=== PATIENT | female | born 1960 | race Caucasian/White ===

== ENCOUNTER 2018-02-11 20:51 | Emergency (ER) | payer OTHER, SELFPAY ==
[2018-02-11 20:52] VITALS: BP 164/97; PULSE 90; RESP 15; TEMP 36.8; O2SAT 98; BMI 33.0
--- NOTE | 2018-02-11 21:04 | CT_ITS ---
STUDY: CT CHEST WITHOUT CONTRAST REASON FOR EXAM: Female, 57 years old. Fell and injured left side RADIATION DOSAGE (If Supplied By Facility): CTDIvol = ( 14.14 ) mGy, DLP = ( 519.27 ) mGycm TECHNIQUE: Transaxial imaging was performed without the administration of intravenous contrast material. Individualized dose optimization techniques were used for this CT. COMPARISON: None. FINDINGS: The lungs are normal. There is no demonstrated pleural abnormality. Normal heart and pericardium. Normal mediastinum. Normal hilar regions. Normal unenhanced pulmonary arteries. Normal aorta arch and descending thoracic aorta. Normal osseous structures. There is no demonstrated abnormality of the visualized upper abdomen. CT/Chest without Contrast IMPRESSION: Normal unenhanced CT Chest examination. Electronically Signed: Rubén Dixon MD at 22:26 EDT , Service support ,
[2018-02-11] MEDS: Ketorolac 30 MG/ML Syringe IM (21:30)
--- NOTE | 2018-02-11 22:41 | ED.VISSUMM ---
- ER Visit Summary Date of Service: 02/11/18 Chief Complaint: [Fall with injury to right chest] History of Present Illness: The patient is a 57 F [presents the emergency department after sustaining a fall approximately 5:30 PM today. Patient states that she tripped and fell onto the blacktop with her right chest. Patient denies striking her head or loss of consciousness. Patient complains of pain with breathing. She denies shortness of breath. He denies any neck pain or abdominal pain.] Physical Examination: [HEENT-PERRLA, EOMI. Cranial nerves II through XII grossly intact. TMs clear. Mucous membranes moist. No adenopathy. Cardiovascular-regular rate and rhythm without murmur or ectopy Lungs-clear to auscultation, chest wall stable without crepitus or subcu emphysema. Patient does have tenderness palpation over the right chest wall in the mid axillary line and posteriorly. No crepitus noted. Abdomen-normoactive bowel sounds, soft, nontender, no rebound or rigidity, no peritoneal signs. Extremities-intact ?4, normal range of motion, normal pulses, atraumatic] Test Results: [CT scan of the chest without contrast obtained was normal.] Emergency Department Course and Treatment: [Patient was medicated with Toradol if she refused any other medications.] Treatment Plan: [Patient did not want any pain meds for home. Patient advised to follow-up with primary care physician in 3-5 days.] Disposition: [Discharged home in stable condition] Impression: [Mechanical fall Chest wall contusion] This note was generated with [employer] dictation software. It may contain incorrect words, spelling, and punctuation that were not noted in review of the chart prior to signing ED Disposition - Plan for ED Patient: Chief Complaint: Chest Other Referrals: Care Physician,No Primary [Primary Care Provider] -
--- NOTE | 2018-02-11 22:43 | ED.DEP ---
ED Disposition - Plan for ED Patient: Chief Complaint: Chest Other Instructions: ED Contusion Chest Wall, ED Mechanical Fall Referrals: Care Physician,No Primary [Primary Care Provider] - Franko To MD [STAFF PHYSICIAN] - 5-7 Days
[2018-02-11 23:01] VITALS: BP 158/81; PULSE 74; RESP 16; O2SAT 98
== END 2018-02-11 23:02 | disposition home or self-care (01) ==
LOC: ED 21:36
PROVIDERS: Emergency Provider Emergency Medicine
DX: S20.211A Contusion of right front wall of thorax, initial encounter (principal); W01.0XXA Fall on same level from slipping, tripping and stumbling without subsequent striking against object, initial encounter; Y93.9 Activity, unspecified; Y92.9 Unspecified place or not applicable
CPT/HCPCS: 71250; 96372; 99282

== ENCOUNTER → 2019-11-12 06:39 | Outpatient (CLI) | payer OTHER, SELFPAY ==
--- NOTE | 2019-11-12 06:45 | MRI_ITS ---
STUDY: MRI RIGHT SHOULDER REASON FOR EXAM: Right shoulder/arm pain, limited range of motion, injury one month ago. TECHNIQUE: Standardized fat and water weighted pulse sequences were obtained in all 3 orthogonal planes. COMPARISON: None. FINDINGS: There is mild supraspinatus and infraspinatus tendinosis (T2 sagittal image 9) without discrete tendon tear. Normal subscapularis tendon. Normal teres minor tendon. Normal supraspinatus muscle. Normal infraspinatus muscle. Normal subscapularis muscle. Normal teres minor muscle. There is a small glenohumeral joint effusion with fluid extending into the bicipital tendon sheath. There is mild cystic change of the greater tuberosity. Normal biceps labral complex. Normal intracapsular long biceps tendon. Normal labrum. Normal capsulo- ligamentous complex. Normal acromioclavicular articulation. There is a Type II morphology (curved), with a neutral orientation. There is no subacromial-subdeltoid bursal fluid. Normal visualized coracohumeral and coracoacromial ligaments. Normal deltoid muscle. Normal trapezius muscle. MRI/Upper Ext Joint Only(Routine) IMPRESSION: Mild supraspinatus and infraspinatus tendinosis without demonstrated rotator cuff tear. Small glenohumeral joint effusion. Electronically Signed: Isai Eastman MD at 9:33 EDT Tel , Service support ,
--- NOTE | 2019-11-12 06:45 | MRI_ITS ---
STUDY: MRI UPPER EXTREMITY RIGHT HUMERUS WITHOUT CONTRAST REASON FOR EXAM: Right shoulder/arm pain, limited range of motion, injury one month ago. TECHNIQUE: Standardized fat and water weighted pulse sequences were obtained in all 3 orthogonal planes. COMPARISON: None. FINDINGS: Normal subcutis adipose space. There is no demonstrated solid, cystic, or lipomatous mass within the subcutaneous adipose space. Normal visualized muscles and fascia. There is a small glenohumeral joint effusion with fluid extending into the bicipital tendon sheath. Normal visualized neurovascular bundles. Normal humerus. MRI/Upper Ext/No Jt/ wo IMPRESSION: Small glenohumeral joint effusion. No demonstrated muscle strain of the right upper arm. Electronically Signed: Isai Eastman MD at 9:32 EDT Tel , Service support ,
== END ==
PROVIDERS: Referring Provider Family Medicine; Visit Provider Family Medicine
DX: S43.401A Unspecified sprain of right shoulder joint, initial encounter (principal); S46.211A Strain of muscle, fascia and tendon of other parts of biceps, right arm, initial encounter
CPT/HCPCS: 73218; 73221

== ENCOUNTER → 2022-01-17 | Outpatient (CLI) | payer OTHER, SELFPAY ==
[2022-01-17 18:19] LABS: Vitamin D,25 Hydroxy 30.8 ng/mL
== END | disposition home or self-care (01) ==
LOC: MTLAB 16:04
PROVIDERS: Referring Provider Podiatrist; Visit Provider Podiatrist
DX: E55.9 Vitamin D deficiency, unspecified (principal); S82.899A Other fracture of unspecified lower leg, initial encounter for closed fracture
CPT/HCPCS: 36415; 82306